=== PATIENT | female | born 1955 | race Two or more races ===

== ENCOUNTER 2019-05-02 01:16 | Emergency (ER) | payer MEDICARE, MEDICAID ==
[~2019-05-02] VITALS: Ht 165.1 cm; Wt 57.0 kg
[2019-05-02 01:20] VITALS: BP 152/72
== END 2019-05-02 10:10 | disposition home or self-care (01) ==
LOC: ER 01:16
DX: S70.00XA Contusion of unspecified hip, initial encounter (principal); S80.219A Abrasion, unspecified knee, initial encounter; I10 Essential (primary) hypertension; Y08.89XA Assault by other specified means, initial encounter; Y93.89 Activity, other specified; Y92.89 Other specified places as the place of occurrence of the external cause; Y99.8 Other external cause status
CPT/HCPCS: 72170; 99283